=== PATIENT | female | born 1945 | race Caucasian/White ===

== ENCOUNTER 2019-10-22 15:22 | Outpatient (CLI) | payer MEDICARE, OTHER, SELFPAY | END 2019-10-22 15:23 | disposition home or self-care (01) | LOC: SPT 15:23 | PROVIDERS: Family Provider Family Medicine; Visit Provider Specialist | DX: Z46.89 Encounter for fitting and adjustment of other specified devices (principal); S52.592D Other fractures of lower end of left radius, subsequent encounter for closed fracture with routine healing; X58.XXXD Exposure to other specified factors, subsequent encounter | CPT/HCPCS: 97760; L3982 ==

== ENCOUNTER 2019-10-26 14:11 | Outpatient (CLI) | payer MEDICARE, OTHER, SELFPAY ==
--- NOTE | 2019-10-26 14:30 | CT_ITS ---
WS: [id number] NONCONTRAST CT LEFT KNEE TECHNIQUE: Noncontrast CT left knee with coronal and sagittal reformatted images. CLINICAL INFORMATION: Contusion left knee COMPARISON: None. DLP: 1161.[address] scans at [facility] use at least one of these dose optimization techniques: automat ed exposure control; mA and/or kV adjustment per patient size (includes targeted exams where dose is matched to clinical indication); or iterative reconstruction. FINDINGS: Normal anatomic alignment. Hypertrophic patella. Small amount of prepatellar soft tissue edema. Media l and lateral joint compartments demonstrate mild degenerative narrowing. No subchondral sclerosis. A few benign bone islands. Small joint effusion. Transverse patella fracture involving the medial patella facet with mild depression. Depression measu res 2.5 mm. This extends to involve the anterior patellar cortex. No displaced or avulsed fracture fr agments. No intra-articular fracture fragments. Distal femur appears normal. Normal femoral condyles. Normal tibial plateau. Fibular head appears nor mal. No other visualized fractures. CT/CT knee LT wo con* [id number] IMPRESSION: 1. Transverse fracture involves the patella at the medial patella facet with m ild depression. This traverses the patella extending to the anterior cortex. Mi ld depression measures approximately 2.4 mm. No avulsed intra-articular fractur e fragments. 2. Small suprapatellar effusion. Hypertrophic patella. 3. Mild degenerative joint space narrowing medial and lateral joint compartmen ts. 4. Prepatellar soft tissue edema.
== END 2019-10-26 14:12 | disposition home or self-care (01) ==
LOC: RADWPI 14:14
PROVIDERS: Family Provider Family Medicine; PCP Family Medicine; Visit Provider Specialist
DX: S80.02XA Contusion of left knee, initial encounter (principal); S82.032A Displaced transverse fracture of left patella, initial encounter for closed fracture; M25.462 Effusion, left knee; R60.9 Edema, unspecified; X58.XXXA Exposure to other specified factors, initial encounter
CPT/HCPCS: 73700

== ENCOUNTER → 2019-10-29 08:25 | Outpatient (BNVA) | payer MEDICARE, OTHER, SELFPAY | PROVIDERS: Family Provider Family Medicine; PCP Family Medicine; Visit Provider Specialist | DX: M25.562 Pain in left knee (principal) | CPT/HCPCS: 73560; 73565 ==

== ENCOUNTER 2019-10-29 11:25 | Outpatient (CLI) | payer MEDICARE, OTHER, SELFPAY | END 2019-10-29 11:26 | disposition home or self-care (01) | LOC: SPT 11:26 | PROVIDERS: Family Provider Family Medicine; PCP Family Medicine; Visit Provider Specialist | DX: Z46.89 Encounter for fitting and adjustment of other specified devices (principal); S52.592D Other fractures of lower end of left radius, subsequent encounter for closed fracture with routine healing; X58.XXXD Exposure to other specified factors, subsequent encounter | CPT/HCPCS: 97760; L1812 ==

== ENCOUNTER 2019-11-12 09:15 | Outpatient (CLI) | payer MEDICARE, OTHER, SELFPAY ==
--- NOTE | 2019-11-12 09:24 | XR_ITS ---
WS: [id number] Left wrist, 3 views, 11/12/2019 Clinical Data: fracture Comparison: Left wrist, 10/18/2019. Findings: There is a healing fracture of the distal left radius. There is an ulnar styloid fracture in good pos ition. 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 The carpal bones are intact. Ther e is a cast about the left wrist. XR/XR wrist LT min 3V* [id number] Impression: Healing fractures of the distal left radius and ulnar styloid.
--- NOTE | 2019-11-12 09:24 | XR_ITS ---
WS: [id number] Left knee, standing AP views of both knees, lateral and patellar view of the left knee, 11/12/2019 Clinical Data: fracture Comparison: Left knee weightbearing, 10/29/2019. Findings: The fracture the medial facet of the left patella is difficult to visualize. The patellar facets appe ar to be intact on the current examination. The AP views of the knees are not changed. There is an an terior superior spur of the left patella. The soft tissues are normal. XR/XR knee LT 3V* [id number] Impression: 1. The fracture of the medial left patellar facet is not visualized on the curr ent exam and may be healed or possibly not included on this current view. 2. No change in appearance of the knees compared the prior exam.
== END 2019-11-12 09:16 | disposition home or self-care (01) ==
LOC: RAD 09:20
PROVIDERS: PCP Family Medicine; Visit Provider Specialist
DX: S52.502A Unspecified fracture of the lower end of left radius, initial encounter for closed fracture (principal); S52.602A Unspecified fracture of lower end of left ulna, initial encounter for closed fracture; S82.002A Unspecified fracture of left patella, initial encounter for closed fracture; X58.XXXA Exposure to other specified factors, initial encounter
CPT/HCPCS: 73110; 73562

== ENCOUNTER → 2019-11-26 08:02 | Outpatient (BNVA) | payer MEDICARE, OTHER, SELFPAY | PROVIDERS: PCP Family Medicine; Visit Provider Specialist | DX: S52.502A Unspecified fracture of the lower end of left radius, initial encounter for closed fracture (principal); S52.602A Unspecified fracture of lower end of left ulna, initial encounter for closed fracture; S82.002A Unspecified fracture of left patella, initial encounter for closed fracture; X58.XXXA Exposure to other specified factors, initial encounter; S59.202A Unspecified physeal fracture of lower end of radius, left arm, initial encounter for closed fracture | CPT/HCPCS: 73110 ==

== ENCOUNTER 2019-11-26 14:14 | Outpatient (CLI) | payer MEDICARE, OTHER, SELFPAY | END 2019-11-26 14:15 | disposition home or self-care (01) | LOC: SPT 14:15 | PROVIDERS: PCP Family Medicine; Visit Provider Specialist | DX: Z46.89 Encounter for fitting and adjustment of other specified devices (principal); S82.032D Displaced transverse fracture of left patella, subsequent encounter for closed fracture with routine healing; X58.XXXD Exposure to other specified factors, subsequent encounter; S52.502A Unspecified fracture of the lower end of left radius, initial encounter for closed fracture; S52.602A Unspecified fracture of lower end of left ulna, initial encounter for closed fracture; S82.002A Unspecified fracture of left patella, initial encounter for closed fracture; X58.XXXA Exposure to other specified factors, initial encounter; S59.202A Unspecified physeal fracture of lower end of radius, left arm, initial encounter for closed fracture | CPT/HCPCS: 73110; 97760; L3908 ==

== ENCOUNTER 2019-12-10 08:11 | Outpatient (RCR) | payer MEDICARE, OTHER, SELFPAY | END 2019-12-31 23:59 | disposition home or self-care (01) | LOC: SOT 08:11 | PROVIDERS: PCP Family Medicine; Referring Provider Specialist; Visit Provider Specialist | DX: S52.502D Unspecified fracture of the lower end of left radius, subsequent encounter for closed fracture with routine healing (principal); S52.602D Unspecified fracture of lower end of left ulna, subsequent encounter for closed fracture with routine healing | CPT/HCPCS: 97035; 97110; 97140; 97166 ==

== ENCOUNTER 2019-12-12 12:57 | Outpatient (CLI) | payer MEDICARE, OTHER, SELFPAY ==
--- NOTE | 2019-12-12 13:00 | CT_ITS ---
WS: [id number] CT scan of the left knee. Additional two-dimensional coronal and sagittal reconstruction was doug velez 12/12/2019 Clinical Data: fracture Comparison: CT left knee, 10/26/2019 DLP: 1104.[address] scans at [facility] use at least one of these dose optimization techniques: automat ed exposure control; mA and/or kV adjustment per patient size (includes targeted exams where dose is matched to clinical indication); or iterative reconstruction. Findings: The small depressed fracture of the posterior medial facet of the left patella has not changed. Again there is a small sclerotic line which extends from the medial aspect of the depression toward the le ft anterior patellar cortex. There is joint space narrowing which is minimal of the medial and latera l joint spaces. The distal femur and the proximal tibia are unremarkable except for small bone island s of the distal femoral condyles. There are large medial varicose veins which are incidental finding s. Otherwise the soft tissues are normal. CT/CT knee LT wo con* [id number] Impression: 1. No change in appearance of probable depressed fracture of the medial posteri or patellar cortex. 2. 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
== END 2019-12-12 12:58 | disposition home or self-care (01) ==
LOC: RADWPI 12:59
PROVIDERS: Family Provider Family Medicine; PCP Family Medicine; Visit Provider Specialist
DX: S82.092A Other fracture of left patella, initial encounter for closed fracture (principal); X58.XXXA Exposure to other specified factors, initial encounter; M17.12 Unilateral primary osteoarthritis, left knee
CPT/HCPCS: 73700

== ENCOUNTER → 2019-12-17 08:04 | Outpatient (BNVA) | payer MEDICARE, OTHER, SELFPAY | PROVIDERS: Family Provider Family Medicine; PCP Family Medicine; Visit Provider Specialist | DX: S52.502D Unspecified fracture of the lower end of left radius, subsequent encounter for closed fracture with routine healing (principal); S52.602D Unspecified fracture of lower end of left ulna, subsequent encounter for closed fracture with routine healing; S82.092D Other fracture of left patella, subsequent encounter for closed fracture with routine healing; W19.XXXD Unspecified fall, subsequent encounter | CPT/HCPCS: 73110 ==

== ENCOUNTER 2019-12-20 06:00 | Outpatient (RCR) | payer MEDICARE, OTHER, SELFPAY | END 2019-12-31 23:59 | disposition home or self-care (01) | LOC: SPT 06:00 | PROVIDERS: PCP Family Medicine; Referring Provider Specialist; Visit Provider Specialist | DX: Z47.89 Encounter for other orthopedic aftercare (principal); S82.002D Unspecified fracture of left patella, subsequent encounter for closed fracture with routine healing; X58.XXXD Exposure to other specified factors, subsequent encounter | CPT/HCPCS: 97110; 97161 ==

== ENCOUNTER 2020-01-01 06:00 | Outpatient (RCR) | payer MEDICARE, OTHER, SELFPAY | END 2020-01-30 23:59 | disposition home or self-care (01) | LOC: SOT 06:00 | PROVIDERS: PCP Family Medicine; Referring Provider Specialist; Visit Provider Specialist | DX: S82.002D Unspecified fracture of left patella, subsequent encounter for closed fracture with routine healing (principal) | CPT/HCPCS: 97035; 97110; 97140 ==

== ENCOUNTER 2020-01-01 06:00 | Outpatient (RCR) | payer MEDICARE, OTHER, SELFPAY | END 2020-01-17 09:33 | disposition home or self-care (01) | LOC: SPT 06:00 | PROVIDERS: PCP Family Medicine; Referring Provider Specialist; Visit Provider Specialist | DX: S82.002D Unspecified fracture of left patella, subsequent encounter for closed fracture with routine healing (principal); X58.XXXD Exposure to other specified factors, subsequent encounter | CPT/HCPCS: 97110 ==

== ENCOUNTER 2020-02-18 15:15 | Outpatient (CLI) | payer MEDICARE, OTHER, SELFPAY ==
--- NOTE | 2020-02-18 15:22 | MM_ITS ---
WS: [id number] BILATERAL DIGITAL SCREENING MAMMOGRAPHY WITH CAD CLINICAL INFORMATION: SCREENING HISTORY: Screening mammogram. No current complaints. COMPARISON: TECHNIQUE: Bilateral CC and MLO views. FINDINGS: The breasts are composed of heterogeneous fibroglandular density tissue, which can limit the detectio n of small underlying mass lesions. No suspicious mass, asymmetry, calcifications, or architectural d istortion. No evidence of malignancy. Punctate and lucent centered calcifications. Stable clustered c alcifications right breast. MM/[place] [id number] IMPRESSION: BI-RADS: 2-Benign FOLLOW UP: 1 Year Follow-up Recommend return to annual screening mammography.
== END 2020-02-18 15:16 | disposition home or self-care (01) ==
LOC: RADSHAW 15:20
PROVIDERS: PCP Family Medicine; Visit Provider Family Medicine
DX: Z12.31 Encounter for screening mammogram for malignant neoplasm of breast (principal)
CPT/HCPCS: 77067

== ENCOUNTER 2021-05-19 08:13 | Outpatient (CLI) | payer MEDICARE, OTHER, SELFPAY ==
--- NOTE | 2021-05-19 08:22 | MM_ITS ---
WS: [id number] BILATERAL DIGITAL DIAGNOSTIC MAMMOGRAM MAMMOGRAPHY WITH CAD CLINICAL INFORMATION: BREAST LUMP COMPARISON: 02/18/2020 and 03/16/2018. TECHNIQUE: Bilateral CC, MLO, and ML views. FINDINGS: Scattered fibroglandular densities bilaterally. Punctate and lucent centered calcifications. Vascular calcification. Stable clustered calcifications upper outer right breast. No mammographic abnormaliti es in the area of palpable marker inferior left breast. Ultrasound is pending. Right breast appears unchanged and unremarkable. ULTRASOUND BREAST LEFT TECHNIQUE: Ultrasound left breast focused area of concern. CLINICAL INFORMATION: BREAST LUMP FINDINGS: Ultrasound left breast at the 10:00 position in the area of palpable abnormality. At the 10:00 position, 1 cm from the nipple, there are 3 small incidental breast cysts the largest me asuring 5.2 x 5.7 mm. These have a benign appearance. No underlying suspicious abnormalities. Recomme nd return to annual screening mammography. MM/[place] [id number] BI-RADS: 2-Benign FOLLOW UP: 1 Year Follow-up Recommend return to annual screening mammography. .
== END 2021-05-19 08:14 | disposition home or self-care (01) ==
LOC: RADSHAW 08:18
PROVIDERS: PCP Family Medicine; Visit Provider Family Medicine
DX: N63.21 Unspecified lump in the left breast, upper outer quadrant (principal); R92.1 Mammographic calcification found on diagnostic imaging of breast
CPT/HCPCS: 76642; 77066

== ENCOUNTER 2022-06-28 06:57 | Outpatient (CLI) | payer MEDICARE, OTHER, SELFPAY ==
--- NOTE | 2022-06-28 07:51 | MM_ITS ---
WS: [id number] BILATERAL SCREENING DIGITAL TOMOSYNTHESIS MAMMOGRAM WITH CAD HISTORY: SCREENING COMPARISON: 05/19/2021 and 02/18/2020 Bilateral CC and MLO views with tomosynthesis and synthetic mammography submitted. Computer aided det ection analyzed. Breast composition: There are scattered areas of fibroglandular density. No suspicious masses, microc alcifications or architectural distortion. Benign round calcifications in each breast. MM/[place] [id number] IMPRESSION: BI-RADS: 2-Benign FOLLOW UP: 1 Year Follow-up
== END 2022-06-28 06:58 | disposition home or self-care (01) ==
PROVIDERS: PCP Family Medicine; Visit Provider Family Medicine
DX: Z12.31 Encounter for screening mammogram for malignant neoplasm of breast (principal)
CPT/HCPCS: 77063; 77067

== ENCOUNTER → 2022-08-18 14:53 | Outpatient (BNVA) | payer MEDICARE, OTHER, SELFPAY | PROVIDERS: PCP Family Medicine; Visit Provider Dermatology | DX: L64.8 Other androgenic alopecia (principal) | CPT/HCPCS: 11901; J3301 ==

== ENCOUNTER → 2022-09-29 13:57 | Outpatient (BNVA) | payer MEDICARE, OTHER, SELFPAY | PROVIDERS: PCP Family Medicine; Visit Provider Dermatology | DX: L63.8 Other alopecia areata (principal); L64.8 Other androgenic alopecia | CPT/HCPCS: 11901; 99213; J3301 ==

== ENCOUNTER → 2022-11-11 12:53 | Outpatient (BNVA) | payer MEDICARE, OTHER, SELFPAY | PROVIDERS: PCP Family Medicine; Visit Provider Dermatology | DX: L66.1 Lichen planopilaris (principal); L57.0 Actinic keratosis | CPT/HCPCS: 11900; 17000; 17003; 99213 ==

== ENCOUNTER → 2023-01-06 14:59 | Outpatient (BNVA) | payer MEDICARE, OTHER, SELFPAY | PROVIDERS: PCP Family Medicine; Visit Provider Dermatology | DX: L66.1 Lichen planopilaris (principal); L57.0 Actinic keratosis | CPT/HCPCS: 11901; 17000; 17003; 99213; J3301 ==

== ENCOUNTER 2023-02-14 11:06 | Outpatient (CLI) | payer MEDICARE, OTHER, SELFPAY ==
--- NOTE | 2023-02-14 11:14 | US_ITS ---
WS: [id number] ULTRASOUND RENAL TECHNIQUE: Ultrasound examination of both kidneys. CLINICAL INFORMATION: STAGE 3B CHRONIC KIDNEY DX COMPARISON: None. FINDINGS: RIGHT: Multiple simple RIGHT renal cysts largest measuring 10.2 x 7.0 x 9.4 cm in the upper pole. Right kidney is normal in size and appearance. Echogenicity: Normal. Cortical thickness: 1.2 cm; Normal. Hydronephrosis: None. Perinephric fluid: None. Right kidney measures: 9.2 cm x 3.6 cm x 4.4 cm. LEFT: Tiny LEFT renal cyst in the mid kidney measuring 1.5 x 1.1 x 1.3 cm Atrophic LEFT kidney with increased echogenicity compatible with medical renal disease. Hydronephrosis: None. Perinephric fluid: None. Left kidney measures: 9.3 cm x 3.0 cm x 4.4 cm. Normal visualized aorta. Normal bladder. IMPRESSION: 1. Atrophic LEFT kidney with increased echogenicity compatible with medical renal disease. 2. No hydronephrosis in either kidney. 3. Multiple simple RIGHT renal cysts largest measuring 10.2 x 7.0 x 9.4 cm in the upper pole.
== END 2023-02-14 11:07 | disposition home or self-care (01) ==
PROVIDERS: PCP Family Medicine; Visit Provider Internal Medicine Nephrology
DX: N18.32 Chronic kidney disease, stage 3b (principal); N28.1 Cyst of kidney, acquired; N26.1 Atrophy of kidney (terminal)
CPT/HCPCS: 76770

== ENCOUNTER → 2023-02-17 14:13 | Outpatient (BNVA) | payer MEDICARE, OTHER, SELFPAY | PROVIDERS: PCP Family Medicine; Visit Provider Dermatology | DX: L66.1 Lichen planopilaris (principal) | CPT/HCPCS: 11900 ==

== ENCOUNTER → 2023-03-30 15:20 | Outpatient (BNVA) | payer MEDICARE, OTHER, SELFPAY | PROVIDERS: PCP Family Medicine; Visit Provider Dermatology | DX: L66.1 Lichen planopilaris (principal) | CPT/HCPCS: 11900 ==

== ENCOUNTER → 2023-06-08 13:30 | Outpatient (BNVA) | payer MEDICARE, OTHER, SELFPAY | PROVIDERS: PCP Family Medicine; Visit Provider Dermatology | DX: L66.1 Lichen planopilaris (principal); L57.0 Actinic keratosis | CPT/HCPCS: 11901; 17000 ==

== ENCOUNTER 2023-08-02 11:23 | Outpatient (CLI) | payer MEDICARE, OTHER, SELFPAY ==
--- NOTE | 2023-08-02 11:28 | MM_ITS ---
WS: [id number] BILATERAL 3D TOMOSYNTHESIS DIGITAL SCREENING MAMMOGRAPHY WITH CAD CLINICAL INFORMATION: SCREENING HISTORY: Screening mammogram. No current complaints. COMPARISON: 2022 TECHNIQUE: Bilateral CC and MLO views. FINDINGS: Scattered fibroglandular densities bilaterally. No suspicious focal mass, asymmetry, calcifications, or architectural distortion. No evidence of malignancy. Incidental punctate and lucent centered calci fications. Stable clustered calcifications RIGHT breast. IMPRESSION: MM/[place] [id number] BI-RADS: 2-Benign FOLLOW UP: 1 Year Follow-up Recommend return to annual screening mammography.
== END 2023-08-02 11:24 | disposition home or self-care (01) ==
LOC: RAD 11:23
PROVIDERS: PCP Family Medicine; Visit Provider Family Medicine
DX: Z12.31 Encounter for screening mammogram for malignant neoplasm of breast (principal)
CPT/HCPCS: 77063; 77067

== ENCOUNTER → 2023-08-15 12:58 | Outpatient (BNVA) | payer MEDICARE, OTHER, SELFPAY | PROVIDERS: PCP Family Medicine; Visit Provider Dermatology | DX: L66.1 Lichen planopilaris (principal); L40.8 Other psoriasis; L82.1 Other seborrheic keratosis; D48.5 Neoplasm of uncertain behavior of skin | CPT/HCPCS: 11102; 11900; 99213 ==

== ENCOUNTER → 2023-09-13 07:55 | Outpatient (BNVA) | payer MEDICARE, OTHER, SELFPAY | PROVIDERS: PCP Family Medicine; Visit Provider Dermatology | DX: C44.319 Basal cell carcinoma of skin of other parts of face (principal) | CPT/HCPCS: 13132; 17311 ==

== ENCOUNTER → 2023-11-15 15:30 | Outpatient (BNVA) | payer MEDICARE, OTHER, SELFPAY | PROVIDERS: PCP Family Medicine; Visit Provider Dermatology | DX: L66.1 Lichen planopilaris (principal); L57.0 Actinic keratosis; Z85.828 Personal history of other malignant neoplasm of skin; L57.8 Other skin changes due to chronic exposure to nonionizing radiation; L81.4 Other melanin hyperpigmentation | CPT/HCPCS: 11900; 17000; 99213 ==

== ENCOUNTER → 2024-01-19 08:20 | Outpatient (BNVA) | payer MEDICARE, OTHER, SELFPAY | PROVIDERS: PCP Family Medicine; Visit Provider Dermatology | DX: L66.1 Lichen planopilaris (principal); L57.8 Other skin changes due to chronic exposure to nonionizing radiation; L81.4 Other melanin hyperpigmentation; L82.1 Other seborrheic keratosis; L57.0 Actinic keratosis; Z85.828 Personal history of other malignant neoplasm of skin | CPT/HCPCS: 17000; 99213 ==

== ENCOUNTER → 2024-07-17 14:05 | Outpatient (BNVA) | payer MEDICARE, OTHER, SELFPAY | PROVIDERS: PCP Family Medicine; Visit Provider Dermatology | DX: L57.0 Actinic keratosis (principal); L57.8 Other skin changes due to chronic exposure to nonionizing radiation; L66.11 Classic lichen planopilaris; L81.4 Other melanin hyperpigmentation; L82.1 Other seborrheic keratosis; D22.5 Melanocytic nevi of trunk; Z08 Encounter for follow-up examination after completed treatment for malignant neoplasm; Z85.828 Personal history of other malignant neoplasm of skin | CPT/HCPCS: 17000; 99214 ==

== ENCOUNTER 2024-10-24 09:13 | Outpatient (CLI) | payer MEDICARE, OTHER, SELFPAY ==
--- NOTE | 2024-10-24 09:23 | MM_ITS ---
WS: [id number] BILATERAL SCREENING DIGITAL TOMOSYNTHESIS MAMMOGRAM WITH CAD HISTORY: SCREENING COMPARISON: 08/02/2023, 06/28/2022 and 02/18/2020 Bilateral CC and MLO views with tomosynthesis and synthetic mammography submitted. Computer aided detection analyzed. Breast composition: There are scattered areas of fibroglandular density. No suspicious masses, microcalcifications or architectural distortion. Scattered asymmetries and calcifications. Round and rodlike calcifications within each breast. MM/MM scr tomosynthesis [id number] IMPRESSION: BI-RADS: 2 - Benign. FOLLOW UP: 1 Year Follow-up
== END 2024-10-24 09:14 | disposition home or self-care (01) ==
PROVIDERS: PCP Family Medicine; Visit Provider Family Medicine
DX: Z12.31 Encounter for screening mammogram for malignant neoplasm of breast (principal); R92.323 Mammographic fibroglandular density, bilateral breasts; R92.1 Mammographic calcification found on diagnostic imaging of breast; N64.89 Other specified disorders of breast
CPT/HCPCS: 77063; 77067

== ENCOUNTER → 2024-11-19 08:12 | Outpatient (BNVA) | payer MEDICARE, OTHER, SELFPAY | PROVIDERS: PCP Family Medicine; Visit Provider Dermatology | DX: L82.1 Other seborrheic keratosis (principal); L66.11 Classic lichen planopilaris; L21.8 Other seborrheic dermatitis; Z08 Encounter for follow-up examination after completed treatment for malignant neoplasm; Z85.828 Personal history of other malignant neoplasm of skin; L57.0 Actinic keratosis | CPT/HCPCS: 17000; 99214 ==